=== PATIENT | male | born 1935 | race Caucasian/White ===

== ENCOUNTER → 2017-04-30 | Day surgery (SDC) | payer MEDICARE, BC ==
[~2017-04-30] MED LIST: ALDACTONE PO; ALDACTONE25 MG PO; AMLODIPINE BES2.5 MG PO; AMLODIPINE BESY10 MG PO; ASPIRIN81 M1 PO; CARVEDILOL25 MG PO; CENTRUM SILVER PO; CENTRUM SILVER1 EAC4 PO; FUROSEMIDE80 MG PO; GLYNASE PO; HUMULIN R100 U/ML SUBQ; LANTUS100 U/M1 SQ; LANTUS100 U/ML SUBQ; LANTUS100 UNITS/; LANTUS100 UNITS/ SUBQ; LASIX PO; LISINOPRIL PO; LO-DOSE ASPIRIN81 M1 PO; LOW DOSE ASPIRI81 M1 PO; METFORMIN HCL1000 M1 PO; METFORMIN HCL500 M1 PO; METFORMIN PO; MINOXIDIL PO; NEXIUM PO; NOVOLIN R100 UNITS/; NOVOLIN R100 UNITS/ SUBQ; OMEPRAZOLE20 M1 PO; OMEPRAZOLE20 M2 PO; PRINIVIL40 MG PO; PROPRANOLOL PO; SERTRALINE HCL100 MG PO; SIMVASTATIN40 MG PO; TRIDESILON 0.0515 GM EXT; VITAMIN D-32000 UNIT PO; ZESTRIL40 MG PO; ZOLOFT PO
--- NOTE | ~2017-04-30 | OR ---
Unit #: [id number] #: [id number] Patient: CORNEL HENDRICKSON [id number] [facility] [address]. [place], [place] [address] [id number] O MR#: [id number] NAME: CORNEL HENDRICKSON ROOM: Date of Procedure: 04/30/2017 Admission Date: 04/30/2017 Surgeon: Nabeel Box M.D. : 1935 Attending Physician: Nabeel Box M.D. Primary Care Physician: Tylor Keith M.D. OPERATIVE REPORT PRIMARY CARE PHYSICIAN Dr. Keith. PREOPERATIVE DIAGNOSIS Rectal bleeding. POSTOPERATIVE DIAGNOSIS 8 mm ascending colon polyp. PROCEDURE PERFORMED Colonoscopy to cecum with cold biopsy forceps and polypectomy x1. ANESTHESIA Monitored anesthesia. INDICATIONS FOR PROCEDURE An 81-year-old gentleman, who presented to his primary care physician with multiple episodes of rectal bleeding. Anorectal examination was unremarkable. The patient does have a prior history of adenomatous polyps of the colon. DESCRIPTION OF PROCEDURE The patient was admitted to [facility], positively identified, transported to the endoscopy unit and after appropriate monitoring and positioning, he was sedated by the anesthesiologist. On rectal examination, there was no local anorectal pathology and on digital examination, there were no palpable masses and the prostate was nonpalpable. Colonoscope was passed through the anal verge throughout the extent of the colon to the cecum where the appendiceal orifice and ileocecal valve were photo-documented. On antegrade and retrograde visualization, there was a single 8 mm polyp in the mid ascending colon. It was completely excised using cold biopsy forceps. The rest of the evaluation was unremarkable. In particular, there was no blood or other pathology seen in the colon. In the rectal vault, I retroflexed the scope and there was no internal hemorrhoidal disease. The patient tolerated the procedure well and transported to recovery in stable condition. Findings were discussed with the family. We will call with results of the pathological evaluation of polyp and recommend followup at that time. At this time, I see no significant pathology of the colorectum. He may have had some perianal discomfort that was causing his rectal bleeding. Unit #: [id number] #: [id number] Patient: CORNEL HENDRICKSON Dictated by... Sanjay Lay/philip TD: 05/01/2017 01:09 JOB #: [id number] OPERATIVE REPORT Page 1 of 1 X Nabeel Box MD PROCEDURE OPERATIVE NOTE
== END | disposition home or self-care (01) ==
LOC: COPS 09:56
DX: D12.2 Benign neoplasm of ascending colon (principal); K21.9 Gastro-esophageal reflux disease without esophagitis; I10 Essential (primary) hypertension; E11.9 Type 2 diabetes mellitus without complications; M19.90 Unspecified osteoarthritis, unspecified site; F32.9 Major depressive disorder, single episode, unspecified; E78.00 Pure hypercholesterolemia, unspecified; E78.5 Hyperlipidemia, unspecified; E66.01 Morbid (severe) obesity due to excess calories; Z68.41 Body mass index [BMI] 40.0-44.9, adult; Z86.79 Personal history of other diseases of the circulatory system; Z86.010 Personal history of colon polyps; Z86.73 Personal history of transient ischemic attack (TIA), and cerebral infarction without residual deficits; Z87.891 Personal history of nicotine dependence; Z85.46 Personal history of malignant neoplasm of prostate; Z80.0 Family history of malignant neoplasm of digestive organs; Z79.4 Long term (current) use of insulin; Z79.82 Long term (current) use of aspirin; Z79.899 Other long term (current) drug therapy; Z90.49 Acquired absence of other specified parts of digestive tract; Z90.79 Acquired absence of other genital organ(s); Z98.890 Other specified postprocedural states
CPT/HCPCS: 82947; 88305